=== PATIENT | female | born 1990 | race African-American/Black ===

== ENCOUNTER 2020-01-07 23:24 | Emergency (ER) | payer OTHER, SELFPAY ==
[2020-01-07 23:42] VITALS: BP 155/105; PULSE 115; RESP 22; TEMP 37.1; O2SAT 100
[2020-01-08 01:07] VITALS: BP 148/98; PULSE 107; RESP 18; TEMP 39.3; O2SAT 99
--- NOTE | 2020-01-08 02:04 | ED.DENTAL ---
HPI - Dental/Oral General Chief complaint: Upper Respiratory Infection Stated complaint: sore throat Time Seen by Provider: 01/08/20 01:46 Source: patient and RN notes reviewed Mode of arrival: ambulatory Limitations: no limitations History of Present Illness HPI Narrative: A 29 y/o female presents to the ED with a constant sore throat beginning yesterday morning. She states that she has kids that have been sick and that yesterday morning she began to have a sore throat, ear pain, subject fevers, and nasal congestion. She notes that she has taken both Tylenol and NyQuil for her symptoms but denies them alleviating her symptoms. She also denies any CP, cough, or SOB. MD Complaint: tooth pain (No just a sore throat) Onset (ago): hour(s) (yesterday morning) Duration: constant Relieving factors: nothing Associated symptoms: fever (subjective), ear pain and other (nasal congestion) Treatment prior to arrival: other (Tylenol and NyQuil) Related Data Allergies Allergy/AdvReac Type Severity Reaction Status Date / Time aspirin Allergy IRVING Valdivia Verified 12/14/19 03:32 ING Review of Systems Review of Systems: Narrative: CONSTITUTIONAL: Reports a subjective fever. ENT: Reports sore throat, nasal congestion and ear pain. CARDIOVASCULAR: Denies chest pain. RESPIRATORY: Denies cough or dyspnea. All systems reviewed & are unremarkable except as noted in HPI and below PMFSH Past Medical History Medical History (Updated 01/08/20 @ 03:03 by Gurpreet Weller) H/O: HTN (hypertension) Surgical History Surgical History (Updated 12/14/19 @ 04:23 by Ny Smalls MD) Previous section Social History Social History (Updated 12/14/19 @ 04:23 by Ny Smalls MD) Smoking status: Never smoker Alcohol intake: never Substance use: never Gender identity (if verbalized by the patient): Female Exam Narrative: Exam Narrative: GENERAL: Well-appearing, well-nourished, and in no acute distress. HEAD: Normocephalic, atraumatic. EYES: PERRLA and EOMI. ENT: Nares clear, no rhinorrhea or epistaxis. Mucous membranes moist. No tonsillar exudates but erythema , mild rt ear erythema, lt ear normal. NECK: Supple. CHEST: Clear to auscultation. No respiratory distress. HEART: Regular rate and rhythm. No murmur heard. Normal peripheral pulses. ABDOMEN: Soft, nontender, nondistended, normal active bowel sounds. EXTREMITIES: Normal range of motion. No edema. SKIN: Warm, dry, no rash. NEURO: No focal deficits. Alert and oriented X3. Course Course Emergency Course: Patient presented for evaluation of ear pain, sore throat. Patient found to have right otitis media. Influenza is negative. Patient was strep swab that is negative, but on exam her oropharynx is very erythematous and this will be consistent with strep pharyngitis. Patient without cough or shortness of breath. Will treat with antibiotics, also given Decadron for sore throat and discharged home in stable condition. Vital Signs Vital signs: Vital Signs Temperature 37.1 C 01/07/20 23:42 Pulse Rate 115 H 01/07/20 23:42 Respiratory Rate 22 H 01/07/20 23:42 Blood Pressure 155/105 H 01/07/20 23:42 Pulse Oximetry 100 01/07/20 23:42 Temperature 37.0 C 01/08/20 02:30 Pulse Rate 81 01/08/20 02:30 Respiratory Rate 16 01/08/20 02:30 Blood Pressure 111/86 01/08/20 02:30 Pulse Oximetry 100 01/08/20 02:30 MDM - Dental/Oral Lab Data Labs: Influenza A Screen Negative Reference Range: Negative Influenza B Screen Negative Reference Range: Negative Strep Screen Presumptive Negative *(Reference Range: Negative)* Discharge Plan Discharge Clinical Impression: Strep pharyngitis Otitis media Qualifiers: Otitis media type: serous Chronicity: acute Laterality: right Recurrence: non-recurrent Qualified Code(s): H65.01 - Acute serous otitis media, right ear Patient Dispo
[2020-01-08 02:30] VITALS: BP 111/86; PULSE 81; RESP 16; TEMP 37; O2SAT 100
[2020-01-08] MEDS: ACETAMINOPHEN 500 MG TABLET 1000 MG PO (02:30)
== END 2020-01-08 02:31 | disposition home or self-care (01) ==
PROVIDERS: Emergency Provider Emergency Medicine
DX: J02.0 Streptococcal pharyngitis (principal); H65.01 Acute serous otitis media, right ear
CPT/HCPCS: 87081; 87804; 87880; 99283; A9270; J1100

== ENCOUNTER 2020-09-06 15:58 | Emergency (ER) | payer OTHER, SELFPAY ==
--- NOTE | ~2020-09-06 | CT_ITS ---
EXAMINATION: CTA chest PE protocol DATE: 09/06/2020 20:36 INDICATION: Chest pain, elevated d-dimer, COVID 19 TECHNIQUE: Computed tomography angiography (CTA) of the chest was performed with 100 mL Omnipaque-350 intravenous contrast timed to evaluate the pulmonary arteries. Coronal maximum intensity projection 3D-reconstructions were created by the technologist. The dose-length product (DLP) was 1892.12 mGy-cm . Automated exposure control and iterative reconstruction technique were employed. COMPARISON: None. FINDINGS: There is moderate opacification of the pulmonary arteries. No pulmonary embolism is identif ied. There are patchy bilateral groundglass opacities throughout the lungs, right greater than left. No pleural effusion or pneumothorax is identified. The heart size is normal. Bilateral hilar lymphade nopathy is likely reactive. The visualized osseous structures are normal. IMPRESSION: 1. Patchy bilateral groundglass opacities in a distribution consistent with COVID 19 pneumonia. 2. Bilateral hilar lymphadenopathy, likely reactive. Reviewed, dictated and finalized at location A. IMPRESSION: 1. Patchy bilateral groundglass opacities in a distribution consistent with COV ID 19 pneumonia. 2. Bilateral hilar lymphadenopathy, likely reactive.
--- NOTE | ~2020-09-06 | XR_ITS ---
EXAMINATION: XR chest 1V portable INDICATION: Cough, COVID 19 positive TECHNIQUE: Portable AP chest at 1814 hours COMPARISON: None available FINDINGS: There are airspace opacities of the lung bases, right greater than left. No pleural effusio n or pneumothorax is identified. The cardiomediastinal silhouette is normal. IMPRESSION: 1. Bibasilar airspace opacities, right greater than left, likely COVID pneumonia given clinical histo ry. Reviewed, dictated and finalized at location A. IMPRESSION: 1. Bibasilar airspace opacities, right greater than left, likely COVID pneumoni a given clinical history.
[2020-09-06 16:20] VITALS: BP 140/94; PULSE 117; RESP 18; TEMP 38.2; O2SAT 98
[2020-09-06 16:39] LABS: Basophils Percent Auto 0.1 % (0.2-1.2); Eosinophils Percent Auto 0.1 % (0-4.4); Hematocrit 38.8 % (37.0-47.0); Hemoglobin 12.3 g/dL (12.0-15.0); Immature Granulocyte Absolute 0.02 K/mm3 (0.00-0.031); Immature Granulocyte Percent A 0.3 % (0-0.5); Lymphocytes Percent Auto 18.8 % (18.3-44.2); Mean Corpuscular HGB Conc 31.7 g/dl (32-36); Mean Corpuscular Hemoglobin 25.9 pg (26-34); Mean Corpuscular Volume 81.9 fl (80-100); Mean Platelet Volume 12.2 fl (7.4-10.4); Monocytes Absolute Auto 0.3 K/mm3 (0.1-0.6); Neutrophils Absolute Auto 6.1 K/mm3 (1.3-6.7); Neutrophils Percent Auto 76.7 % (45.5-73.1); Platelet Count Result 171 k/mm3 (150-375); Red Blood Count 4.74 M/mm3 (4.2-5.4); Red Cell Distribution Width 15.9 % (11.5-14.5)
[2020-09-06 16:52] LABS: Alanine Aminotransferase 19 U/L (4-35); Albumin Level 4.2 g/dL (3.5-5.1); Alkaline Phosphatase 77 U/L (38-126); Anion Gap 11 mmol/L (8-16); Aspartate Amino Transferase 35 U/L (14-36); Bilirubin,Total 0.5 mg/dL (0.2-1.3); Blood Urea Nitrogen 6 mg/dL (7-17); Calcium 8.5 mg/dL (8.4-10.2); Carbon Dioxide 27 mmol/L (22-30); Chloride 101 mmol/L (98-107); Estimated CRCL calculation 117 ml/min; Estimated Glomerular Filt Rate > 60; Glucose 107 mg/dL (65-105); Lipase 37 U/L (23-300); Potassium 3.6 mmol/L (3.4-5.0); Sodium 139 mmol/L (137-145)
--- NOTE | 2020-09-06 17:26 | ED.NAVMDI ---
HPI - Nausea/Vomiting/Diarrhea General Chief complaint: Nausea/Vomiting/Diarrhea Stated complaint: COVID symptoms Time Seen by Provider: 09/06/20 17:26 Source: patient Mode of arrival: ambulatory Limitations: no limitations History of Present Illness HPI Narrative: Patient is a 29-year-old female, recently diagnosed with COVID 1 week ago who presents for evaluation of nausea, vomiting, myalgias, chest pain. Patient states she has felt increasingly worse with cough, fever, myalgias and recurrent nausea and vomiting over the past several days. Patient states that she was starting to feel so unwell that she decided to seek care in the emergency department. She reports cough and shortness of breath with exertion. She reports mild chest pain as well as diffuse myalgias. She reports nausea and vomiting as well as diarrhea. 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 Related Data Allergies Allergy/AdvReac Type Severity Reaction Status Date / Time aspirin Allergy Intermediate IRVING OCONNOR Verified 09/06/20 16:25 ING Review of Systems Review of Systems: Narrative: CONSTITUTIONAL: Reports fever and chills EYES: Denies visual changes, redness, or discharge. ENT: Denies rhinorrhea, congestion, sore throat, or otalgia. CARDIOVASCULAR: Reports chest pain without palpitations RESPIRATORY: Reports cough and shortness of breath GASTROINTESTINAL: Denies abdominal pain, reports nausea, vomiting and diarrhea GENITOURINARY: Denies dysuria or hematuria. SKIN: Denies rash or itching. MUSCULOSKELETAL: Reports myalgias NEUROLOGIC: Reports headache and weakness PMFSH Past Medical History Medical History (Updated 09/06/20 @ 21:31 by Ny Smalls MD) H/O: HTN (hypertension) Obesity Surgical History Surgical History (Updated 12/14/19 @ 04:23 by Ny Smalls MD) Previous section Social History Social History Smoking status: Never smoker Alcohol intake: never Substance use: never Gender identity (if verbalized by the patient): Female Exam Narrative: Exam Narrative: GENERAL: Awake, alert, conversant HEAD: Normocephalic, atraumatic. EYES: PERRLA and EOMI. ENT: Nares clear, no rhinorrhea or epistaxis. Mucous membranes moist. NECK: Supple. CHEST: No respiratory distress, breathing even and non labored HEART: Tachycardic rate, sinus rhythm ABDOMEN: Obese, non distended, non tender EXTREMITIES: Normal range of motion. No edema. SKIN: Warm, dry, no rash. NEURO:No focal deficits. Alert and oriented x3 Course Vital Signs Vital signs: Vital Signs Temperature 38.2 C H 09/06/20 16:20 Pulse Rate 117 H 09/06/20 16:20 Respiratory Rate 18 09/06/20 16:20 Blood Pressure 140/94 H 09/06/20 16:20 Pulse Oximetry 98 09/06/20 16:20 Temperature 37.9 C H 09/06/20 19:45 Pulse Rate 94 09/06/20 19:45 Respiratory Rate 18 09/06/20 19:45 Blood Pressure 137/93 H 09/06/20 19:45 Pulse Oximetry 98 09/06/20 19:45 MDM - Nausea/Vomiting/Diarrhea MDM Narrative Medical decision making narrative: Patient with diagnosis of COVID-19. At the time of assessment, she is tachycardic and febrile. No hypotension. Patient is not hypoxic. No increased work of breathing. Laboratory results are reassuring. No leukocytosis or severe lymphopenia. No thrombocytopenia. No severe electrolyte derangement or acute kidney injury. CTA without evidence of PE, she does have infiltrates consistent with COVID diagnosis. This is viral and does not warrant antibiotics. Patient does not have hypoxemia, no respiratory distress and this does not warrant any steroids per current guidelines. No lactic acidosis. No sign of severe sepsis or septic shock. No UTI. No elevation in troponin. Patient was reassessed, improved after fluids and Tylenol. Patient advised to get pulse oximeter to help her monitor her pulse ox at home. At this point, patient haris
--- NOTE | 2020-09-06 17:42 | ECG_ITS ---
Measurements Intervals [place] Rate: 110 P: 48 MS: 127 QRS: 16 QRSD: 86 T: 10 QT: 314 QTc: 425 Interpretive Statements SINUS TACHYCARDIA POSSIBLE RIGHT ATRIAL ENLARGEMENT VOLTAGE CRITERIA FOR LVH BORDERLINE T WAVE ABNORMALITY- ANT/INF LEADS BASELINE ARTIFACT- V1 ABNORMAL ECG Electronically Signed On 09-07-2020 6:45:32 CDT by Bear Meehan D.O.
[2020-09-06] MEDS: ONDANSETRON INJ 4 MG/2 ML VIAL IV PUSH (18:18)
[2020-09-06] MEDS: SODIUM CHLORIDE 0.9% IV 1,000 ML 999 ML IV CONT ×2 (18:18)
[2020-09-06] MEDS: MORPHINE SULFATE (*CRX) 4 MG/ML INJ IV PUSH (18:18)
[2020-09-06 18:20] VITALS: BP 110/78; PULSE 110; RESP 26; O2SAT 98
[2020-09-06 18:47] LABS: Add Urine Microscopic? YES; Appearance Urine Cloudy (Clear); Bacteria Urine Trace /hpf; Bilirubin Urine Negative (Negative); Blood Urine 3+ (Negative); Color Urine Amber (Yellow); Glucose Urine UA Negative (Negative); Ketones Urine Negative (Negative); Leukocyte Esterase Ur Negative LEU/UL (Negative); Mucus Urine Few /lpf; Nitrate Urine Negative (Negative); Protein Urine 2+ mg/dL (Negative); Specific Grav Ur 1.026 (1.001-1.035); Squamous Epithelial Cell Urine Many /hpf (Few)
[2020-09-06 18:53] LABS: INR 1.1; Prothrombin Time 14.1 Seconds (11.1-14.7)
[2020-09-06 18:54] LABS: Partial Thromboplastin Time 29.7 SECONDS (22.3-36.8)
[2020-09-06 18:56] LABS: D Dimer 0.51 ug/mL (<0.48)
[2020-09-06 19:09] LABS: Troponin I < 0.012 ng/mL (0.000-0.034)
[2020-09-06 19:45] VITALS: BP 137/93; PULSE 94; RESP 18; TEMP 37.9; O2SAT 98
[2020-09-06 21:48] VITALS: BP 126/82; PULSE 90; RESP 25; O2SAT 97
== END 2020-09-06 21:50 | disposition home or self-care (01) ==
PROVIDERS: Emergency Provider Emergency Medicine
DX: U07.1 COVID-19 (principal); I10 Essential (primary) hypertension; E66.9 Obesity, unspecified; Z68.43 Body mass index [BMI] 50.0-59.9, adult; R00.0 Tachycardia, unspecified; R94.31 Abnormal electrocardiogram [ECG] [EKG]
CPT/HCPCS: 36415; 71045; 71275; 80053; 81001; 81025; 83605; 83690; 84484; 85025; 85380; 85610; 85730; 87040; 93005; 96361; 96374; 96375; 99284; J0131; J2270; J2405; J7030; Q9967

== ENCOUNTER 2020-11-08 21:18 | Emergency (ER) | payer OTHER, SELFPAY ==
[2020-11-08 21:23] VITALS: BP 151/112; PULSE 88; RESP 20; TEMP 35.9; O2SAT 100
--- NOTE | 2020-11-08 21:27 | ED_ITS ---
HPI - Nausea/Vomiting/Diarrhea General Chief complaint: Nausea/Vomiting/Diarrhea Stated complaint: vomiting, sinus congestion Time Seen by Provider: 11/08/20 21:26 Related Data Allergies Allergy/AdvReac Type Severity Reaction Status Date / Time aspirin Allergy IRVING Valdivia Verified 11/08/20 21:25 ING [facility] Past Medical History Medical History (Updated 09/06/20 @ 21:31 by Ny Smalls MD) H/O: HTN (hypertension) Obesity Surgical History Surgical History (Updated 12/14/19 @ 04:23 by Ny Smalls MD) Previous section Social History Social History Smoking status: Never smoker Alcohol intake: never Substance use: never Gender identity (if verbalized by the patient): Female Course Vital Signs Vital signs: Vital Signs Temperature 35.9 C L 11/08/20 21:23 Pulse Rate 88 11/08/20 21:23 Respiratory Rate 20 11/08/20 21:23 Blood Pressure 151/112 H 11/08/20 21:23 Pulse Oximetry 100 11/08/20 21:23 Temperature 35.9 C L 11/08/20 21:23 Pulse Rate 88 11/08/20 21:23 Respiratory Rate 20 11/08/20 21:23 Blood Pressure 151/112 H 11/08/20 21:23 Pulse Oximetry 100 11/08/20 21:23 Discharge Plan Discharge Prescriptions: No Action oxycodone-acetaminophen 5-325 mg tablet 1 tablet PO Q6H PRN (Reason: pain) Qty: 14 RF: 0 ondansetron HCl [Zofran] 4 mg tablet 4 mg PO Q8H Qty: 14 RF: 0 albuterol sulfate [Ventolin HFA] 90 mcg/actuation HFA aerosol inhaler 1 inhalation INHALATION QID 10 Days Qty: 6.7 RF: 0
--- NOTE | 2020-11-08 21:28 | ED.GENADULT ---
HPI - General Adult General Chief complaint: Nausea/Vomiting/Diarrhea <Leigh Ann Elliott PA-C - Last Filed: 11/09/20 00:24> Stated complaint: vomiting, sinus congestion <Leigh Ann Elliott PA-C - Last Filed: 11/09/20 00:24> Time Seen by Provider: 11/08/20 21:26 <Leigh Ann Elliott PA-C - Last Filed: 11/09/20 00:24> Source: patient <Leigh Ann Elliott PA-C - Last Filed: 11/09/20 00:24> Mode of arrival: ambulatory <LEELEE Rosa Last Filed: 11/09/20 00:24> Limitations: no limitations <Leigh Ann Elliott PA-C - Last Filed: 11/09/20 00:24> History of Present Illness HPI narrative: Patient is here for treatment of 3 to 4 days of vomiting. Frequently preceded by coughing. She states she can keep nothing down. She went to her doctor today and was prescribed an antibiotic for sinusitis, some blood pressure medicine and something for pain. She has not taken his medications yet. She is complaining of sinus congestion and pressure and ear pain as well. She denies any fever, chest pain, shortness of breath or wheezing. <Leigh Ann Elliott PA-C - Last Filed: 11/09/20 00:24> Onset (ago): day(s) <Leigh Ann Elliott PA-C - Last Filed: 11/09/20 00:24> Severity: mild <LEELEE Rosa Last Filed: 11/09/20 00:24> Relieving factors: none <LEELEE Rosa Last Filed: 11/09/20 00:24> Exacerbating factors: none <LEELEE Rosa Last Filed: 11/09/20 00:24> Associated symptoms: denies other symptoms <LEELEE Rosa Last Filed: 11/09/20 00:24> Treatments prior to arrival: none <LEELEE Rosa Last Filed: 11/09/20 00:24> Related Data Home medications: Home Medications Medication Instructions Recorded Confirmed azithromycin 11/08/20 11/08/20 metoprolol succinate PO 11/08/20 montelukast mg 11/08/20 <Leigh Ann Elliott PA-C - Last Filed: 11/09/20 00:24> Allergies/adverse reactions: Allergies Allergy/AdvReac Type Severity Reaction Status Date / Time aspirin Allergy Intermediate ELVINIRVING Verified 11/08/20 21:25 ING <Leigh Ann Elliott PA-C - Last Filed: 11/09/20 00:24> Review of Systems Review of Systems: All systems reviewed & are unremarkable except as noted in HPI and below <Leigh Ann Elliott PA-C - Last Filed: 11/09/20 00:24> [facility] Past Medical History Medical History: Medical History H/O: HTN (hypertension) Obesity <Leigh Ann Elliott PA-C - Last Filed: 11/09/20 00:24> Surgical History Surgical History: Surgical History Previous section <Leigh Ann Elliott PA-C - Last Filed: 11/09/20 00:24> Social History Social History: Social History (Updated 11/08/20 @ 21:49 by Leigh Ann Elliott PA-C) Smoking status: Never smoker Alcohol intake: never Substance use: never Living arrangements: with family Occupation/Education: occupation 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 Gender identity (if verbalized by the patient): Female <Leigh Ann Elliott PA-C - Last Filed: 11/09/20 00:24> Exam Const: General: no acute distress and alert <Leigh Ann Elliott PA-C - Last Filed: 11/09/20 00:24> Nutritional Appearance: obese <Leigh Ann Elliott PA-C - Last Filed: 11/09/20 00:24> Orientation/consciousness: patient oriented x3 <LEELEE Rosa Last Filed: 11/09/20 00:24> HENMT: Ears: TM abnormal wth effusion (bilat) <Leigh Ann Elliott PA-C - Last Filed: 11/09/20 00:24> General nose exam: Normal septum present, No nasal discharge present and Abnormal mucous membranes and turbinates present (swollen) <LEELEE Rosa Last Filed: 11/09/20 00:24> Face and sinus: sinus tenderness frontal and maxillary <Leigh Ann Elliott PA-C - Last Filed: 11/09/20 00:24> Mouth: Yes Normal oral and palatal mucosa present <Leigh Ann Elliott
[2020-11-08 22:12] LABS: Hematocrit 36.6 % (37.0-47.0); Hemoglobin 11.6 g/dL (12.0-15.0); Mean Corpuscular HGB Conc 31.7 g/dl (32-36); Mean Corpuscular Hemoglobin 27.2 pg (26-34); Mean Corpuscular Volume 85.9 fl (80-100); Mean Platelet Volume 11.5 fl (7.4-10.4); Platelet Count Result 239 k/mm3 (150-375); Red Blood Count 4.26 M/mm3 (4.2-5.4); Red Cell Distribution Width 16.2 % (11.5-14.5); White Blood Count 10.3 K/mm3 (4.5-10.0)
[2020-11-08] MEDS: SODIUM CHLORIDE 0.9% IV 1,000 ML 999 ML IV CONT (22:14)
[2020-11-08 22:19] LABS: Add Urine Microscopic? YES; Appearance Urine Clear (Clear); Bacteria Urine Trace /hpf; Bilirubin Urine Negative (Negative); Blood Urine Negative (Negative); Color Urine Yellow (Yellow); Glucose Urine UA Negative (Negative); Ketones Urine Negative (Negative); Leukocyte Esterase Ur Negative LEU/UL (Negative); Mucus Urine Rare /lpf; Nitrate Urine Negative (Negative); Protein Urine Negative (Negative); RBC Urine 0-2 /hpf (0-2); Specific Grav Ur 1.021 (1.001-1.035); Squamous Epithelial Cell Urine Many /hpf (Few); Urobilinogen Urine Negative mg/dL (<2.0); WBC Urine 0-3 /hpf
[2020-11-08 22:23] LABS: Anion Gap 8 mmol/L (8-16); Blood Urea Nitrogen 13 mg/dL (7-17); Carbon Dioxide 27 mmol/L (22-30); Chloride 103 mmol/L (98-107); Estimated CRCL calculation 135 ml/min; Estimated Glomerular Filt Rate > 60; Glucose 94 mg/dL (65-105); Potassium 4.1 mmol/L (3.4-5.0); Sodium 138 mmol/L (137-145)
[2020-11-08 22:27] LABS: Eosinophils Percent Manual 3 % (0-4); Lymphocytes Absolute Manual 5.56 K/mm3 (1.1-4.5); Monocytes Absolute Manual 0.51 K/mm3 (0.1-0.90); Monocytes Percent Manual 5 % (3-9); Neutrophils Percent Manual 38 % (46-73); Platelet Estimate Adequate (Adequate); Total Cells Counted 100
[2020-11-08 22:28] LABS: Anisocytosis 2+ (NORMAL)
[2020-11-08 22:29] LABS: Hypochromasia 1+ (NORMAL)
[2020-11-08] MEDS: ONDANSETRON INJ 4 MG/2 ML VIAL IV PUSH (22:40)
[2020-11-09 00:39] VITALS: BP 146/93; PULSE 85; RESP 18; O2SAT 100
== END 2020-11-09 00:46 | disposition home or self-care (01) ==
PROVIDERS: Physician Assistant; Emergency Provider Emergency Medicine
DX: R11.10 Vomiting, unspecified (principal); J01.01 Acute recurrent maxillary sinusitis; R05 Cough; I10 Essential (primary) hypertension; E66.9 Obesity, unspecified; Z68.43 Body mass index [BMI] 50.0-59.9, adult
CPT/HCPCS: 36415; 80048; 81001; 85025; 96361; 96374; 99284; J2405; J7030

== ENCOUNTER 2021-12-27 10:44 | Inpatient (IN) | payer OTHER, SELFPAY ==
--- NOTE | ~2021-12-27 | MR_ITS ---
EXAMINATION: MR MRCP wo/w con/w 3D wo ind DATE: 12/28/2021 11:21 INDICATION: Cholelithiasis. Acute pancreatitis. TECHNIQUE: Magnetic resonance imaging (MRI) of the abdomen was performed without and with 20 mL Multi [place] intravenous contrast. Sequences included coronal T2-weighted FS FSE, coronal T2-weighted FSE, a xial T1-weighted LAVA, coronal FS FIESTA, axial dual-echo T1-weighted SPGR, coronal lava-FLEX, sagitt al T2-weighted FSE, axial T2-weighted FSE, and axial DWI. Thick-slab T2-weighted FSE images were obta ined for magnetic resonance cholangiopancreatography (MRCP). Maximum intensity projection 3-D reconst ructions of the volumetric data were created by the technologist. Postcontrast sequences included cor onal LAVA-flex and time course of axial T1-weighted LAVA. COMPARISON: CT abdomen and pelvis 12/27/2021, ultrasound 12/27/2021 FINDINGS: ABDOMEN MRI: The liver is normal. The gallbladder is normal in size and filled with gallstones. There is fat stranding around the pancreas, consistent with acute interstitial pancreatitis. The pancreas enhances throughout. The spleen, adrenal glands, and kidneys are normal. There are no dilated loops o f bowel. There are no pathologically enlarged lymph nodes. There is physiologic fluid in the pelvis. ABDOMEN MRCP: The common duct is normal and measures 3 mm. No choledocholithiasis. IMPRESSION: 1. Acute interstitial pancreatitis. 2. Normal common duct. No choledocholithiasis. 3. Cholelithiasis. Reviewed, dictated and finalized at location A. DOOR BUILDER
--- NOTE | ~2021-12-27 | US_ITS ---
EXAMINATION: US abdomen limited EXAM DATE: 12/27/2021 14:22 INDICATION: Cholelithiasis. Pancreatitis. TECHNIQUE: Multiple grayscale and Doppler images of the abdomen right upper quadrant were obtained (b y a technologist who performed the scan) and subsequently reviewed. Correlation is made to CT abdomen pelvis same date. FINDINGS: The pancreatic head and body are normal in appearance. The pancreatic tail is not visualized. Please note that uncomplicated pancreatitis typically does not have ultrasound findings. The liver has norm al echogenicity and contour. There are no focal liver lesions identified. There is no evidence of intrahepatic biliary duct dilation. Portal venous flow was seen in the hepatopedal, normal direction and has normal Doppler waveform. No right-sided hydronephrosis. Common bile duct measures 5 mm, which is normal. Gallbladder has wall echo shadow appearance, stone filled gallbladder. There is mild gallbladder wall thickening at 4-5 mm. This is nonspecific in the setting of acute pancreatitis but reportedly technologist did find right upper quadrant tenderness. N o pericholecystic fluid. IMPRESSION: Cholelithiasis, mild gallbladder wall thickening and right upper quadrant tenderness. Fin dings could be reactive from acute pancreatitis but acute cholecystitis not excludable. Reviewed, dictated and finalized at location A. OPERATOR IMPRESSION: Cholelithiasis, mild gallbladder wall thickening and right upper qu adrant tenderness. Findings could be reactive from acute pancreatitis but acute cholecystitis not excludable.
--- NOTE | ~2021-12-27 | XR_ITS ---
EXAMINATION: XR chest 2V DATE: 12/27/2021 11:32 INDICATION: Central chest pain. TECHNIQUE: Frontal and lateral views of the chest were obtained. COMPARISON: Chest single view 09/06/2020, chest CT 09/06/2020 FINDINGS: The chest demonstrates clear lungs without pneumonia, pleural effusion, or pneumothorax. Th e heart size is normal. IMPRESSION: 1. No acute cardiopulmonary disease. Reviewed, dictated and finalized at location A. AGING DESIGN ENGINEER
--- NOTE | ~2021-12-27 | CT_ITS ---
EXAMINATION: CT abdomen pelvis w con DATE: 12/27/2021 13:01 INDICATION: Chest pain. Elevated lipase. TECHNIQUE: Computed tomography (CT) of the abdomen and pelvis was performed with 100 cc Omnipaque 350 intravenous contrast. The dose-length product was 1462.20 mGy-cm. Automated exposure control and ite rative reconstruction technique were employed. COMPARISON: None. FINDINGS: Lung bases are unremarkable. Heart size normal. No significant pleural or pericardial effus ion. Lung bases are unremarkable. Heart size normal. No significant pleural or pericardial effusion. No significant vascular abnormality. No lymphadenopathy. Nonobstructive bowel gas pattern. Fatty infiltration of the liver. The spleen, adrenal glands and kidneys are unremarkable. Gallbladder contains stones. There is mild thickening of the pancreatic head and neck with subtle peripancreatic fatty infiltration, consistent with acute pancreatitis. No evidence for pseudocyst formation. Small fat-containing umbilical hernia. No free air or free fluid. No acute osseous abnormality. IMPRESSION: 1. Acute mild pancreatitis. 2: Cholelithiasis. 3: Fatty infiltration of the liver. Reviewed, dictated and finalized at location B. ICAL ANALYST
--- NOTE | 2021-12-27 10:47 | ECG_ITS ---
Measurements Intervals [place] Rate: 96 P: 21 WI: 138 QRS: 31 QRSD: 90 T: 23 QT: 322 QTc: 408 Interpretive Statements SINUS RHYTHM MINIMAL Q WAVES- HIGH LATERAL LEADS BASELINE ARTIFACT- I, II, AVR BORDERLINE ECG Electronically Signed On 12-27-2021 10:58:55 [employer] by Bear Meehan D.O.
[2021-12-27 10:58] VITALS: BP 134/75; PULSE 94; RESP 15; TEMP 36.7; O2SAT 100
[2021-12-27 11:11] LABS: Basophils Percent Auto 0.2 % (0.2-1.2); Eosinophils Absolute Auto 0.1 K/mm3 (0-0.3); Eosinophils Percent Auto 0.7 % (0-4.4); Hematocrit 31.2 % (37.0-47.0); Hemoglobin 9.4 g/dL (12.0-15.0); Immature Granulocyte Absolute 0.04 K/mm3 (0.00-0.031); Immature Granulocyte Percent A 0.4 % (0-0.5); Lymphocytes Absolute Auto 1.65 K/mm3 (0.9-3.2); Lymphocytes Percent Auto 15.7 % (18.3-44.2); Mean Corpuscular HGB Conc 30.1 g/dl (32-36); Mean Corpuscular Hemoglobin 24.1 pg (26-34); Mean Platelet Volume 11.1 fl (7.4-10.4); Monocytes Absolute Auto 0.6 K/mm3 (0.1-0.6); Monocytes Percent Auto 5.8 % (2.6-8.5); Neutrophils Absolute Auto 8.2 K/mm3 (1.3-6.7); Neutrophils Percent Auto 77.2 % (45.5-73.1); Platelet Count Result 323 k/mm3 (150-375); Red Cell Distribution Width 15.6 % (11.5-14.5); White Blood Count 10.5 K/mm3 (4.5-10.0)
[2021-12-27 11:25] LABS: Partial Thromboplastin Time 25.8 SECONDS (22.3-36.8); Prothrombin Time 13.1 Seconds (11.1-14.7)
[2021-12-27 11:34] LABS: Troponin I < 0.012 ng/mL (0.000-0.034)
[2021-12-27 11:54] LABS: Alanine Aminotransferase 169 U/L (4-35); Albumin Level 4.3 g/dL (3.5-5.1); Alkaline Phosphatase 130 U/L (38-126); Anion Gap 3 mmol/L (8-16); Aspartate Amino Transferase 463 U/L (14-36); Bilirubin,Total 0.9 mg/dL (0.2-1.3); Blood Urea Nitrogen 11 mg/dL (7-17); Calcium 9.2 mg/dL (8.4-10.2); Carbon Dioxide 27 mmol/L (22-30); Chloride 107 mmol/L (98-107); Estimated CRCL calculation 132 ml/min; Estimated Glomerular Filt Rate > 60; Glucose 106 mg/dL (65-110); Sodium 137 mmol/L (137-145)
[2021-12-27 12:30] VITALS: BP 143/78; PULSE 85; RESP 16; O2SAT 100
--- NOTE | 2021-12-27 12:31 | ED.CHESTPAIN ---
HPI - Chest Pain General Chief Complaint: Abdominal Pain Stated Complaint: CP Time Seen by Provider: 12/27/21 12:13 Source: patient Mode of arrival: ambulatory Limitations: no limitations History of Present Illness HPI narrative: This is a 31 year old female that presents to the ER for chest pain since this morning. Reports a sharp pain in her chest and her back. Reports the pain has been consistently worsening which prompted her to be seen. She was seen at another hospital a couple of weeks ago and told she had gallstones. Was scheduled to follow up with a surgeon today, but her pain was too bad so she decided to be seen in the ED. Reports some nausea and vomiting. Denies fever, shortness of breath, or diarrhea. Related Data Home Medications Medication Instructions Recorded Confirmed montelukast mg 11/08/20 albuterol sulfate INHALATION 12/27/21 amlodipine-benazepril cap 12/27/21 cephalexin 12/27/21 cetirizine mg 12/27/21 metformin mg 12/27/21 norethindrone (contraceptive) mg 12/27/21 [Norlyda] tizanidine mg 12/27/21 Allergies Allergy/AdvReac Type Severity Reaction Status Date / Time aspirin Allergy Intermediate IRVING OCONNOR Verified 12/27/21 13:09 ING Review of Systems Review of Systems: CONSTITUTIONAL: Denies fever CARDIOVASCULAR: Reports chest pain. Denies edema. RESPIRATORY: Denies dyspnea. GASTROINTESTINAL: Reports abdominal pain, nausea, vomiting. Denies diarrhea. 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 HEAD: Normocephalic, atraumatic. EYES: EOMI. CHEST: Clear to auscultation. No respiratory distress. No wheezes rales or rhonchi HEART: Regular rate and rhythm. No murmur heard. Normal peripheral pulses. ABDOMEN: Soft, nondistended, normal active bowel sounds. Tender to palpation in epigastrium and right upper quadrant, without guarding. EXTREMITIES: Normal range of motion. No edema. SKIN: Warm, dry, no rash. NEURO: No focal deficits. Alert and oriented x3. PSYCH: Normal mood and affect Course Consultations Consultation #1: Spoke with Dr. Gaona about patient and work-up who will consult. Date: 12/27/21 Consultation #2: Spoke with Dr. Maloney about patient and work-up who would like MRCP ordered and will consult. Date: 12/27/21 Consultation #3: Spoke with hospitalist about patient and work-up who accepts admission Date: 12/27/21 Vital Signs Vital signs: Vital Signs Temperature 98.0 F 12/27/21 10:58 Pulse Rate 94 12/27/21 10:58 Respiratory Rate 15 12/27/21 10:58 Blood Pressure 134/75 12/27/21 10:58 Pulse Oximetry 100 12/27/21 10:58 Temperature 98.0 F 12/27/21 10:58 Pulse Rate 85 12/27/21 12:30 Respiratory Rate 16 12/27/21 12:30 Blood Pressure 143/78 H 12/27/21 12:30 Pulse Oximetry 100 12/27/21 12:30 MDM - Chest Pain MDM Narrative Medical decision making narrative: Patient presents to the ER for chest pain and back pain. She is afebrile and nontoxic appearing. Her vitals are stable. CBC with mild leukocytosis to 10.5. Also shows normocytic anemia with hemoglobin of 9.4. Metabolic panel with transaminitis with AST of 463 and ALT of 169. Lipase is elevated to 28,385. Bedside test is negative. EKG without acute ST changes and baseline troponin is negative. C
[2021-12-27] MEDS: SODIUM CHLORIDE 0.9% IV 1,000 ML 999 ML IV CONT (13:02)
[2021-12-27] MEDS: ONDANSETRON INJ 4 MG/2 ML VIAL IV PUSH ×2 (13:03→15:32)
[2021-12-27] MEDS: MORPHINE SULFATE (*CRX) 4 MG/ML INJ IV PUSH (13:03)
[2021-12-27 14:30] VITALS: PULSE 81; RESP 13; O2SAT 99
--- NOTE | 2021-12-27 14:49 | PM.IMHP ---
H&P: HPI History of Present Illness Date/Time: 12/27/21 14:49 this is a 31-year-old female patient who recently was diagnosed with gallstones at an outside facility. The patient came to the emergency room here with complaints of chest discomfort since this morning. She said it was sharp it was in her chest is midsternal was in her back. Now she is complaining of diffuse abdominal pain the patient was scheduled to follow-up with the surgeon today but was in too much pain to follow-up with that surgeon and came to the emergency room instead. At the time she reported that she did not have any nausea vomiting. But now she is complaining of some slight nausea. Abdominal pelvis CT was read as acute mild pancreatitis. Cholelithiasis. Fatty infiltrated liver. Abdominal ultrasound was read as cholelithiasis mild gallbladder wall thickening and right upper quadrant tenderness findings could be reactive from acute pancreatitis but acute coli cystitis not excludable. White count was noted to be 10.5 and H&H is 9.4 and 31.2. Cardiac enzymes are negative x3. A sees 463 ALT 169 and alkaline phosphatase 130. Lipase is 28,385. Surgery has been consulted. Her H&H is 9.4 and 31.2. Blood pressure 151/98. The patient is being admitted for observation on 12/27/2019 tube. Chief Complaint: Abdominal pain Review of Systems Review of Systems: All systems reviewed & are unremarkable except as noted in HPI and below Constitutional: Constitutional: Reports as per HPI and Reports no additional constitutional complaints Eyes: Eyes: Reports as per HPI and Reports no additional eye complaints ENT: Reports system reviewed and no additional complaints, except as documented and Reports Normal hearing present Cardiovascular: Cardiovascular: Reports no additional cardiovascular complaints Respiratory: Respiratory: Reports no additional respiratory complaints and Reports no additional respiratory complaints Gastrointestinal: Gastrointestinal: Reports as per HPI and Reports no additional gastrointestinal complaints Musculoskeletal: Musculoskeletal: Reports no additional musculoskeletal complaints Integumentary/Breasts: Skin/Breast: Reports system reviewed and no additional complaints, except as docu and Reports as per HPI Neurologic: Reports system reviewed and no additional complaints, except as documented, Reports as per HPI and Reports Normal hearing present Psychiatric: Psychiatric: Reports no additional psychiatric complaints and Reports as per HPI Endocrine: Endocrine: Reports no additional endocrine complaints Hematologic/Lymphatic: Hematologic/Lymphatic: Reports no additional hematologic/lymphatic complaints Allergic/Immunologic: Allergic/Immunologic: Reports no additional allergic/immunologic complaints PMFSH Past Medical History Medical History (Updated 12/27/21 @ 18:19 by Supriya Pete NP) H/O: HTN (hypertension) History of PCOS Hypertension Obesity PCOS (polycystic ovarian syndrome) Surgical History Surgical History Previous section 3 c section Family History Family History Mother Hypertension Asthma Social History Social History (Updated 12/27/21 @ 18:10 by Supriya Pete NP) Social History: 4 pregnancies with 2 living children. She is single. 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 The patient denies any alcohol marijuana illicit drugs. The patient does not have a durable power bankruptcy attorney for healthcare. Code status full code Smoking status: Never smoker Alcohol intake: never Substance use: never Gender identity (if verbalized by the patient): Female Meds Home Medications and Allergies Home Medications Medication Instructions Recorded Confirmed Type montelukast mg 11/08/20 History albuterol sulfate INHALATION 12/27/21 History amlodipine-benazepri
[2021-12-27 14:50] VITALS: BP 151/98; PULSE 81; RESP 23; O2SAT 99
[2021-12-27 14:52] LABS: Troponin I < 0.012 ng/mL (0.000-0.034)
[2021-12-27] MEDS: HYDROmorphone HCL INJ (*CRX) 1 MG/ML SYR 0.5 MG IV PUSH (15:34)
[2021-12-27 17:31] LABS: Troponin I < 0.012 ng/mL (0.000-0.034)
[2021-12-27] MEDS: SODIUM CHLORIDE 0.9% IV 1,000 ML 125 ML IV CONT (17:51)
[2021-12-27 19:38] VITALS: BP 145/95; PULSE 73; RESP 20; O2SAT 99
--- NOTE | 2021-12-27 19:51 | PC.NURSE ---
1949-CALLED TO PHARMACY. REQUESTED 1999 [facility].
[2021-12-27 20:02] LABS: SARS-CoV-2 RNA PCR Negative
--- NOTE | 2021-12-27 20:25 | PC.NURSE ---
2024-CALLED TO PHARMACY AND AGAIN REQUESTED [facility] FOR 1999.
[2021-12-27 22:07] VITALS: BP 134/95; PULSE 72; RESP 20; O2SAT 97
[2021-12-27 22:34] LABS: Hematocrit 28.5 % (37.0-47.0); Hemoglobin 8.6 g/dL (12.0-15.0)
[2021-12-28 01:10] VITALS: BP 134/81; PULSE 71; RESP 18; TEMP 36; O2SAT 100
[2021-12-28 01:24] VITALS: BMI 41.2
[2021-12-28 01:26] VITALS: BP 98/72; PULSE 99; RESP 20; TEMP 36.5; O2SAT 100
[2021-12-28] MEDS: SODIUM CHLORIDE 0.9% IV 1,000 ML 125 ML IV CONT ×2 (03:05→20:25)
--- NOTE | 2021-12-28 03:23 | PC.NURSE ---
Pt refused SCD's
[2021-12-28 03:34] VITALS: BMI 41.2
[2021-12-28 05:16] VITALS: BP 134/65; PULSE 86; RESP 18; TEMP 36.4; O2SAT 98
[2021-12-28 07:36] LABS: Basophils Percent Auto 0.3 % (0.2-1.2); Eosinophils Absolute Auto 0.1 K/mm3 (0-0.3); Eosinophils Percent Auto 1.3 % (0-4.4); Hematocrit 27.5 % (37.0-47.0); Hemoglobin 8.3 g/dL (12.0-15.0); Immature Granulocyte Absolute 0.12 K/mm3 (0.00-0.031); Immature Granulocyte Percent A 1.2 % (0-0.5); Immature Reticulocyte Fraction 23.4 % (3.0-15.9); Lymphocytes Absolute Auto 2.53 K/mm3 (0.9-3.2); Lymphocytes Percent Auto 25.5 % (18.3-44.2); Mean Corpuscular HGB Conc 30.2 g/dl (32-36); Mean Corpuscular Hemoglobin 24.2 pg (26-34); Mean Corpuscular Volume 80.2 fl (80-100); Mean Platelet Volume 10.9 fl (7.4-10.4); Monocytes Absolute Auto 0.4 K/mm3 (0.1-0.6); Monocytes Percent Auto 4.1 % (2.6-8.5); Neutrophils Absolute Auto 6.7 K/mm3 (1.3-6.7); Neutrophils Percent Auto 67.6 % (45.5-73.1); Platelet Count Result 266 k/mm3 (150-375); Red Blood Count 3.43 M/mm3 (4.2-5.4); Red Cell Distribution Width 15.7 % (11.5-14.5); Reticulocyte Hemoglobin Conten 24.1 pg (28.2-35.7); Reticulocyte Percent 1.79 % (0.7-4.3); Reticulocytes Absolute 0.06 B/L (32.2-175.7); White Blood Count 9.9 K/mm3 (4.5-10.0)
[2021-12-28 07:44] LABS: Alanine Aminotransferase 176 U/L (4-35); Albumin Level 3.8 g/dL (3.5-5.1); Alkaline Phosphatase 146 U/L (38-126); Anion Gap 6 mmol/L (8-16); Aspartate Amino Transferase 186 U/L (14-36); Bilirubin,Total 0.5 mg/dL (0.2-1.3); Blood Urea Nitrogen 12 mg/dL (7-17); Calcium 8.6 mg/dL (8.4-10.2); Carbon Dioxide 24 mmol/L (22-30); Chloride 109 mmol/L (98-107); Estimated CRCL calculation 91 ml/min; Estimated Glomerular Filt Rate > 60; Glucose 87 mg/dL (65-110); Magnesium 2.1 mg/dL (1.6-2.3); Potassium 3.7 mmol/L (3.4-5.0); Sodium 139 mmol/L (137-145)
[2021-12-28 08:00] VITALS: PULSE 86; RESP 18; O2SAT 98
[2021-12-28 09:36] LABS: Iron 40 ug/dL (37-170)
[2021-12-28 09:46] LABS: Percent Iron Saturation 11 % (20-50)
[2021-12-28 10:12] LABS: Thyroid Stimulating Hormone Reflex 0.854 uIU/mL (0.465-4.68)
[2021-12-28 11:02] LABS: Folic Acid 6.9 ng/mL (2.76->20)
--- NOTE | 2021-12-28 11:40 | PM.IMPN ---
Progress Note: A&P Assessment and Plan (1) Gallstone pancreatitis: Code(s): K85.10 - Biliary acute pancreatitis without necrosis or infection Status: Acute Assessment and Plan: Pain improving MRCP negative for common duct stone Surgical evaluation pending (2) Hypertension: Qualifiers: Hypertension type: unspecified Qualified Code(s): I10 - Essential (primary) hypertension Code(s): I10 - Essential (primary) hypertension Status: Chronic Assessment and Plan: Blood pressures reviewed 12/28 and adequate Continue current management (3) UTI (urinary tract infection): Qualifiers: Urinary tract infection type: site unspecified Hematuria presence: without hematuria Qualified Code(s): N39.0 - Urinary tract infection, site not specified Code(s): N39.0 - Urinary tract infection, site not specified Status: Acute Assessment and Plan: Start ceftriaxone Await culture results Subjective Date/time seen: 12/28/21 11:40 Interval history: 12/28 VISIT. Right upper quadrant to flank discomfort. Currently NPO. Thirsty but no appetite. Denied chest pain or shortness of breath. Denied nausea vomiting. Denied abnormal bleeding. Does complain of dysuria and vaginal itching. History of UTIs maybe once per year. Feels similar to previous UTI. Review of Systems Review of Systems: All systems reviewed & are unremarkable except as noted in HPI and below Exam Narrative: HEENT: PERRL, sclerae nonicteric, pharyngeal mucosa pink and intact NECK: No JVD CHEST: Clear to auscultation. Normal effort. HEART: NL S1/S2, regular, no murmur ABDOMEN: BS+, soft, MILD RUQ TO EPIGASTRIC TENDERNESS, no mass, no bruits EXTREMITIES: No cyanosis, edema, or clubbing NEUROLOGIC: CN intact and symmetric to inspection. MUSCULOSKELETAL: Tone and strength symmetric. PSYCH: Alert. Oriented to person, place, and time. Objective Data Vital Signs Vital Signs: Vital Signs - 24 hr 12/27/21 12:30 12/27/21 14:30 12/27/21 14:50 Temperature Pulse Rate 85 81 81 Respiratory Rate 16 13 23 H Blood Pressure 143/78 H 151/98 H Pulse Oximetry 100 99 99 12/27/21 19:38 12/27/21 22:07 12/28/21 01:10 Temperature 96.8 F L Pulse Rate 73 72 71 Respiratory Rate 20 20 18 Blood Pressure 145/95 H 134/95 H 134/81 Pulse Oximetry 99 97 100 12/28/21 01:26 12/28/21 05:16 12/28/21 08:00 Temperature 97.7 F 97.6 F Pulse Rate 99 86 86 Respiratory Rate 20 18 18 Blood Pressure 98/72 L 134/65 Pulse Oximetry 100 98 98 Intake/Output Intake/Output: Intake & Output 12/25/21 12/26/21 12/27/21 12/28/21 23:59 23:59 23:59 23:59 Intake Total 1050 1050 Output Total 300 Balance 1050 750 Meds/Results Medications: Active Medications Generic Name Dose Route Start Last Admin Trade Name Freq PRN Reason Stop Dose Admin Albuterol 2 puff 12/28/21 00:42 Albuterol Sulfate (*Sp) Aerosol 1 Puff INHALATION Q6HRT PRN Shortness Of Breath Hydromorphone HCl 0.5 mg 12/27/21 14:55 12/27/21 15:34 Hydromorphone Hcl Inj (*Crx) 1 Mg/Ml Syr IV PUSH 0.5 mg Q3H PRN Administration pain 7-10 Sodium Chloride 1,000 mls @ 125 mls/hr 12/27/21 15:05 12/28/21 03:05 Normal Saline Iv IV CONT 125 mls/hr .Q8H KEVIN Administration Piperacillin/Tazobactam/Dextrose 3.375 gm in 50 mls @ 100 mls/hr 12/27/21 20:00 12/28/21 09:33 Zosyn 3.375 Gm/D5w 50ml Pm IVPB 100 mls/hr Q6H KEVIN Administration Ketorolac Tromethamine 15 mg 12/27/21 14:56 Ketorolac 15 Mg/Ml Vial (*Bkc) IV PUSH Q6H PRN Pain Rated 4-6 Ondansetron HCl 4 mg 12/27/21 14:53 12/27/21 15:32 Ondansetron Inj 4 Mg/2 Ml Vial IV PUSH 4 mg Q4H PRN Administration Nausea Radiology Results: ITS Impressions Chest X-Ray 12/27/21 11:34 IMPRESSION: 1. No acute cardiopulmonary disease. Abdomen/Pelvis CT 12/27/21 13:05 IMPRESSION: 1. Acute mild pancreatitis. 2: C
--- NOTE | 2021-12-28 12:40 | PM.PNGS ---
Subjective Subjective Date/Time Seen: 12/28/21 12:40 went to patient's room 2 different times but she was getting MRCP. Will dictate full consult tomorrow. Objective Data Vital Signs Vital Signs: Vital Signs - 24 hr 12/27/21 14:30 12/27/21 14:50 12/27/21 19:38 Temperature Pulse Rate 81 81 73 Respiratory Rate 13 23 H 20 Blood Pressure 151/98 H 145/95 H Pulse Oximetry 99 99 99 12/27/21 22:07 12/28/21 01:10 12/28/21 01:26 Temperature 36.0 C L 36.5 C Pulse Rate 72 71 99 Respiratory Rate 20 18 20 Blood Pressure 134/95 H 134/81 98/72 L Pulse Oximetry 97 100 100 12/28/21 05:16 12/28/21 08:00 Temperature 36.4 C Pulse Rate 86 86 Respiratory Rate 18 18 Blood Pressure 134/65 Pulse Oximetry 98 98 Intake/Output Intake/Output: Intake & Output 12/25/21 12/26/21 12/27/21 12/28/21 23:59 23:59 23:59 23:59 Intake Total 1050 1050 Output Total 300 Balance 1050 750 Meds/Results Medications: Active Medications Generic Name Dose Route Start Last Admin Trade Name Freq PRN Reason Stop Dose Admin Albuterol 2 puff 12/28/21 00:42 Albuterol Sulfate (*Sp) Aerosol 1 Puff INHALATION Q6HRT PRN Shortness Of Breath Hydromorphone HCl 0.5 mg 12/27/21 14:55 12/27/21 15:34 Hydromorphone Hcl Inj (*Crx) 1 Mg/Ml Syr IV PUSH 0.5 mg Q3H PRN Administration pain 7-10 Sodium Chloride 1,000 mls @ 125 mls/hr 12/27/21 15:05 12/28/21 03:05 Normal Saline Iv IV CONT 125 mls/hr .Q8H KEVIN Administration Piperacillin/Tazobactam/Dextrose 3.375 gm in 50 mls @ 100 mls/hr 12/27/21 20:00 12/28/21 09:33 Zosyn 3.375 Gm/D5w 50ml Pm IVPB 100 mls/hr Q6H KEVIN Administration Ketorolac Tromethamine 15 mg 12/27/21 14:56 Ketorolac 15 Mg/Ml Vial (*Bkc) IV PUSH Q6H PRN Pain Rated 4-6 Miconazole Nitrate 1 appful 12/28/21 21:00 Miconazole Nitrate 2% Vaginal Cream 45 Gm Tube VAGINAL HS KEVIN Ondansetron HCl 4 mg 12/27/21 14:53 12/27/21 15:32 Ondansetron Inj 4 Mg/2 Ml Vial IV PUSH 4 mg Q4H PRN Administration Nausea Radiology Results: ITS Impressions Chest X-Ray 12/27/21 11:34 IMPRESSION: 1. No acute cardiopulmonary disease. Abdomen/Pelvis CT 12/27/21 13:05 IMPRESSION: 1. Acute mild pancreatitis. 2: Cholelithiasis. 3: Fatty infiltration of the liver. Abdomen Ultrasound 12/27/21 14:24 IMPRESSION: Cholelithiasis, mild gallbladder wall thickening and right upper quadrant tenderness. Findings could be reactive from acute pancreatitis but acute cholecystitis not excludable. MRCP 12/28/21 11:31 IMPRESSION: 1. Acute interstitial pancreatitis. 2. Normal common duct. No choledocholithiasis. 3. Cholelithiasis. Labs Labs: Laboratory Results - last 24 hr 12/27/21 12/27/21 12/27/21 14:16 17:04 19:01 WBC RBC Hgb Hct MCV MCH MCHC RDW Plt Count MPV Immature Gran % (Auto) Neut % (Auto) Lymph % (Auto) [place] % (Auto) Eos % (Auto) Baso % (Auto) Lymph # (Auto) [place] # (Auto) Eos # (Auto) Baso # (Auto) Abs Immat Gran (auto) Absolute Neuts (auto) Absolute Nucleated RBC Nucleated RBC % Absolute Retic Percent Retic Immature Retic Fraction Retic Hgb Content Sodium Potassium Chloride Carbon Dioxide Anion Gap BUN Creatinine Estim Creat Clear Calc Estimated GFR Glucose Calcium Magnesium Iron TIBC Ferritin Total Bilirubin AST ALT Alkaline Phosphatase Troponin I < 0.012 < 0.012 Total Protein Albumin Vitamin B12 Folate TSH (Reflex) SARS-CoV-2 RNA (RT-PCR) Negative 12/27/21 12/28/21 12/28/21 22:16 07:21 07:21 WBC RBC Hgb 8.6 L Hct 28.5 L MCV MCH MCHC RDW Plt Count MPV Immature Gran % (Auto) Neut % (Auto) Lymph % (Auto) [place] % (Auto) Eos % (Auto) Baso % (Auto) Lymph # (Au
[2021-12-28 12:55] LABS: Hematocrit 29.7 % (37.0-47.0)
[2021-12-28 14:00] VITALS: BP 129/76; PULSE 81; RESP 16; TEMP 36.7; O2SAT 100
[2021-12-28 14:53] LABS: Add Urine Microscopic? YES; Appearance Urine Cloudy (Clear); Bilirubin Urine Negative (Negative); Blood Urine Negative (Negative); Color Urine Yellow (Yellow); Glucose Urine UA Negative (Negative); Ketones Urine 1+ mg/dL (Negative); Leukocyte Esterase Ur 3+ LEU/UL (Negative); Mucus Urine Rare /lpf; Nitrate Urine Negative (Negative); Protein Urine Negative (Negative); Squamous Epithelial Cell Urine Many /hpf (Few); Urobilinogen Urine Negative mg/dL (<2.0); WBC Urine 21-30 /hpf
[2021-12-28 14:54] LABS: Specific Grav Ur 1.036 (1.001-1.035)
[2021-12-28] MEDS: MICONAZOLE NITRATE 2% VAGINAL CREAM 45 GM TUBE 1 APPFUL VAGINAL (20:27)
[2021-12-28 22:00] VITALS: BP 142/84; PULSE 93; RESP 18; TEMP 36.2; O2SAT 99
[2021-12-28] MEDS: HYDROmorphone HCL INJ (*CRX) 1 MG/ML SYR 0.5 MG IV PUSH (23:49)
[2021-12-29] MEDS: SODIUM CHLORIDE 0.9% IV 1,000 ML 125 ML IV CONT (05:42)
[2021-12-29 06:00] VITALS: BP 148/95; PULSE 89; RESP 16; TEMP 36.1; O2SAT 100
[2021-12-29 08:30] LABS: Hematocrit 31.7 % (37.0-47.0); Hemoglobin 9.4 g/dL (12.0-15.0); Mean Corpuscular HGB Conc 29.7 g/dl (32-36); Mean Corpuscular Hemoglobin 23.9 pg (26-34); Mean Corpuscular Volume 80.7 fl (80-100); Mean Platelet Volume 11.2 fl (7.4-10.4); Platelet Count Result 323 k/mm3 (150-375); Red Blood Count 3.93 M/mm3 (4.2-5.4); Red Cell Distribution Width 15.7 % (11.5-14.5); White Blood Count 11.5 K/mm3 (4.5-10.0)
[2021-12-29 08:36] LABS: Alanine Aminotransferase 135 U/L (4-35); Albumin Level 4.3 g/dL (3.5-5.1); Alkaline Phosphatase 163 U/L (38-126); Anion Gap 9 mmol/L (8-16); Aspartate Amino Transferase 76 U/L (14-36); Bilirubin,Total 0.4 mg/dL (0.2-1.3); Blood Urea Nitrogen 10 mg/dL (7-17); Calcium 8.9 mg/dL (8.4-10.2); Carbon Dioxide 22 mmol/L (22-30); Chloride 107 mmol/L (98-107); Estimated CRCL calculation 100 ml/min; Estimated Glomerular Filt Rate > 60; Glucose 75 mg/dL (65-110); Lipase 138 U/L (23-300); Potassium 3.6 mmol/L (3.4-5.0); Sodium 138 mmol/L (137-145)
[2021-12-29] MEDS: ENOXAPARIN 40 MG/0.4 ML SYRINGE SUB-Q (09:12)
--- NOTE | 2021-12-29 10:02 | PM.CNGS ---
Assessment and Plan Assessment and plan (1) Gallstone pancreatitis: Code(s): K85.10 - Biliary acute pancreatitis without necrosis or infection Status: Acute Assessment and Plan: Pancreatitis has resolved. Discussed with Dr. Momin. Will go ahead and start patient on low-fat diet. If she tolerates this well, she could go home tomorrow. We will plan to go ahead with laparoscopic cholecystectomy as an outpatient within the next couple of weeks. Patient will need to go home on a low-fat diet. At surgery, she will have an intraoperative cholangiogram. I discussed the procedure of laparoscopic cholecystectomy including the general aspects of the surgery, the usual length of recovery and the time off work. The patient is happy to be able to be discharged before surgery as she just started a new job and wants to coordinate the surgery with her new employer. All questions were answered. She understands and agrees to go ahead. Patient does not need to go home on antibiotics from my perspective. Urine culture is pending. (2) Morbid obesity with BMI of 40.0-44.9, adult: Code(s): E66.01 - Morbid (severe) obesity due to excess calories; Z68.41 - Body mass index [BMI] 40.0-44.9, adult Status: Chronic (3) PCOS (polycystic ovarian syndrome): Code(s): E28.2 - Polycystic ovarian syndrome Status: Chronic Assessment and Plan: Takes metformin (4) Hypertension: Qualifiers: Hypertension type: unspecified Qualified Code(s): I10 - Essential (primary) hypertension Code(s): I10 - Essential (primary) hypertension Status: Chronic (5) Anemia: Code(s): D64.9 - Anemia, unspecified Status: Chronic Assessment and Plan: Etiology unclear. H&H has been stable during admission. History of Present Illness Consult details Consult date: 12/29/21 Reason for consult: abdominal pain (Lower chest and epigastric area) Requesting physician: Linn Childs PA-C Narrative: Patient is a 31-year-old woman who 2 or 3 weeks ago had epigastric abdominal pain that radiated through to her back. She was seen at [facility] and imaging showed gallstones. Her pain improved and she was to see a surgeon at [facility] on the day of admission 12/27/2021. However, she developed lower chest and epigastric abdominal pain that was very severe on the day of admission. This radiated through to her back. It was unbearable and she came to the emergency room at [facility]. Evaluation there showed tenderness in the epigastric area. Her white blood cell count was only slightly elevated but liver enzymes were elevated and her serum lipase was over 28,000. She had a CT scan of the abdomen and pelvis which showed gallstones as well as acute pancreatitis. She was admitted to [facility] and we were asked to see her in consultation. I came by twice yesterday but patient was getting her MRI so only saw her for the 1st time this morning. Her pain went away yesterday. It has not recurred. She is hungry. Her lipase came back yesterday afternoon and was normal. Liver enzymes are improving. Her MRCP yesterday showed no evidence of common bile duct stones but did show acute pancreatitis and gallstones. She is seen now in consultation for acute biliary pancreatitis. She has been started on ceftriaxone for possible urinary tract infection. She is also on Zosyn. Ultrasound done yesterday did show gallstones as well. Review of Systems Review of Systems: All systems reviewed & are unremarkable except as noted in HPI and below Constitutional: Constitutional: Denies chills and Denies fever(s) Cardiovascular: Cardiovascular: Denies chest pain, Denies diaphoresis, Denies dyspnea and Denies paroxysmal nocturnal dyspnea Respiratory: Respiratory: Denies chest congestion, Denies cough and Denies dyspnea Integumentary/Breasts: Skin/Breast: Denies lesions and Denies rash PMFSH Past Medical History Medical History
[2021-12-29] MEDS: ACETAMINOPHEN 325 MG TABLET 650 MG PO (11:49)
--- NOTE | 2021-12-29 12:00 | PM.IMPN ---
Progress Note: A&P Assessment and Plan (1) Gallstone pancreatitis: Code(s): K85.10 - Biliary acute pancreatitis without necrosis or infection Status: Acute Assessment and Plan: Pain improving MRCP negative for common duct stone Surgical evaluation pending (2) Hypertension: Qualifiers: Hypertension type: unspecified Qualified Code(s): I10 - Essential (primary) hypertension Code(s): I10 - Essential (primary) hypertension Status: Chronic Assessment and Plan: Blood pressures reviewed 12/28 and adequate Continue current management (3) UTI (urinary tract infection): Qualifiers: Urinary tract infection type: site unspecified Hematuria presence: without hematuria Qualified Code(s): N39.0 - Urinary tract infection, site not specified Code(s): N39.0 - Urinary tract infection, site not specified Status: Acute Assessment and Plan: Continue Zosyn (day 3) U/A ABNL, suggestive of UTI, symptoms resolved C/s will likely be negative due to Zosyn Note that she also described vaginal itching with has resolved with miconazole Subjective Date/time seen: 12/29/21 12:00 Interval history: 12/29 visit. No abdominal pain. No nausea. Only complaint today is a headache which she attributes to fasting. Denied chest pain or shortness of breath or swelling. Denied abnormal bleeding. Denied fevers or chills. Review of Systems Review of Systems: All systems reviewed & are unremarkable except as noted in HPI and below Exam Narrative: HEENT: PERRL, sclerae nonicteric, pharyngeal mucosa pink and intact NECK: No JVD CHEST: Clear to auscultation. Normal effort. HEART: NL S1/S2, regular, no murmur ABDOMEN: BS+, soft, MILD RUQ TO EPIGASTRIC TENDERNESS, no mass, no bruits EXTREMITIES: No cyanosis, edema, or clubbing NEUROLOGIC: CN intact and symmetric to inspection. MUSCULOSKELETAL: Tone and strength symmetric. PSYCH: Alert. Oriented to person, place, and time. Objective Data Vital Signs Vital Signs: Vital Signs - 24 hr 12/28/21 14:00 12/28/21 22:00 12/29/21 06:00 Temperature 98.0 F 97.1 F L 96.9 F L Pulse Rate 81 93 89 Respiratory Rate 16 18 16 Blood Pressure 129/76 142/84 H 148/95 H Pulse Oximetry 100 99 100 Intake/Output Intake/Output: Intake & Output 12/26/21 12/27/21 12/28/21 12/29/21 23:59 23:59 23:59 23:59 Intake Total 1050 2200 1050 Output Total 850 Balance 1050 1350 1050 Meds/Results Medications: Active Medications Generic Name Dose Route Start Last Admin Trade Name Freq PRN Reason Stop Dose Admin Acetaminophen 650 mg 12/29/21 09:55 12/29/21 11:49 Acetaminophen 325 Mg Tablet PO 650 mg Q4H PRN Administration Headache Albuterol 2 puff 12/28/21 00:42 Albuterol Sulfate (*Sp) Aerosol 1 Puff INHALATION Q6HRT PRN Shortness Of Breath Enoxaparin Sodium 40 mg 12/29/21 09:00 12/29/21 09:12 Enoxaparin 40 Mg/0.4 Ml Syringe SUB-Q 40 mg DAILY KEVIN Administration Hydromorphone HCl 0.5 mg 12/27/21 14:55 12/28/21 23:49 Hydromorphone Hcl Inj (*Crx) 1 Mg/Ml Syr IV PUSH 0.5 mg Q3H PRN Administration pain 7-10 Sodium Chloride 1,000 mls @ 60 mls/hr 12/27/21 15:05 12/29/21 05:42 Normal Saline Iv IV CONT 125 mls/hr .[id number] KEVIN Administration Piperacillin/Tazobactam/Dextrose 3.375 gm in 50 mls @ 100 mls/hr 12/27/21 20:00 12/29/21 09:12 Zosyn 3.375 Gm/D5w 50ml Pm IVPB 100 mls/hr Q6H KEVIN Administration Ceftriaxone Sodium/Dextrose 1 gm in 50 mls @ 100 mls/hr 12/28/21 17:15 Rocephin 1 Gm/D5w 50 Ml IVPB Q24H KEVIN Ketorolac Tromethamine 15 mg 12/27/21 14:56 Ketorolac 15 Mg/Ml Vial (*Bkc) IV PUSH Q6H PRN Pain Rated 4-6 Miconazole Nitrate 1 appful 12/28/21 21:00 12/28/21 20:27 Miconazole Nitrate 2% Vaginal Cream 45 Gm Tube VAGINAL 1 appful HS KEVIN Administration Miscellaneous Information 1 each 12/28/21 00:01 Pt On Zosyn,
[2021-12-29 14:00] VITALS: BP 124/84; PULSE 99; RESP 16; TEMP 36.6; O2SAT 97
[2021-12-29 20:00] VITALS: PULSE 99; RESP 16; O2SAT 97
[2021-12-29] MEDS: MICONAZOLE NITRATE 2% VAGINAL CREAM 45 GM TUBE 1 APPFUL VAGINAL (20:33)
[2021-12-29 22:00] VITALS: BP 133/63; PULSE 88; RESP 18; TEMP 36.6; O2SAT 97
[2021-12-30 05:05] VITALS: BP 120/64; PULSE 81; RESP 18; TEMP 36.4; O2SAT 97
[2021-12-30 08:00] VITALS: O2SAT 97
[2021-12-30 08:00] LABS: Hematocrit 29.4 % (37.0-47.0); Mean Corpuscular HGB Conc 30.6 g/dl (32-36); Mean Corpuscular Hemoglobin 24.5 pg (26-34); Mean Corpuscular Volume 80.1 fl (80-100); Mean Platelet Volume 11.3 fl (7.4-10.4); Platelet Count Result 297 k/mm3 (150-375); Red Blood Count 3.67 M/mm3 (4.2-5.4); Red Cell Distribution Width 15.7 % (11.5-14.5); White Blood Count 8.6 K/mm3 (4.5-10.0)
[2021-12-30 08:10] LABS: Alanine Aminotransferase 83 U/L (4-35); Albumin Level 3.9 g/dL (3.5-5.1); Alkaline Phosphatase 125 U/L (38-126); Anion Gap 7 mmol/L (8-16); Aspartate Amino Transferase 33 U/L (14-36); Bilirubin,Total 0.2 mg/dL (0.2-1.3); Blood Urea Nitrogen 6 mg/dL (7-17); Calcium 8.6 mg/dL (8.4-10.2); Carbon Dioxide 22 mmol/L (22-30); Chloride 108 mmol/L (98-107); Estimated CRCL calculation 112 ml/min; Estimated Glomerular Filt Rate > 60; Glucose 97 mg/dL (65-110); Lipase 83 U/L (23-300); Potassium 3.7 mmol/L (3.4-5.0); Sodium 137 mmol/L (137-145)
[2021-12-30] MEDS: ENOXAPARIN 40 MG/0.4 ML SYRINGE SUB-Q (08:20)
[2021-12-30] MEDS: ACETAMINOPHEN 325 MG TABLET 650 MG PO (08:25)
--- NOTE | 2021-12-30 09:03 | PM.DS ---
DS: Admitting Diagnosis Discharge Date 12/30/2021 Admitting Diagnosis Abdominal pain DS: Discharge Diagnosis Discharge Diagnosis (1) Gallstone pancreatitis: Code(s): K85.10 - Biliary acute pancreatitis without necrosis or infection Status: Acute Assessment and Plan: Abdominal pain improving MRCP negative for common duct stone Pt seen by surgery team. (2) Hypertension: Qualifiers: Hypertension type: unspecified Qualified Code(s): I10 - Essential (primary) hypertension Code(s): I10 - Essential (primary) hypertension Status: Chronic Assessment and Plan: Blood pressures is normal (3) UTI (urinary tract infection): Qualifiers: Hematuria presence: without hematuria Urinary tract infection type: site unspecified Qualified Code(s): N39.0 - Urinary tract infection, site not specified Code(s): N39.0 - Urinary tract infection, site not specified Status: Acute Assessment and Plan: Continue Zosyn (day 4) U/A ABNL, suggestive of UTI, symptoms resolved Transition to oral augmentin Continue miconazole for vaginal itching DS: Summary Hospital Course Hospital Course: 31-year-old female patient who recently was diagnosed with gallstones at an outside facility. The patient came to the emergency room here with complaints of chest discomfort since this morning. She said it was sharp it was in her chest is midsternal was in her back. Pt seen by surgery team pt should follow outpatient for lap cholecystectomy. Pt has been treated with iv zosyn for UTI. Time Spent with Patient Time attestation: Total time spent providing and/or coordinating discharge services:40 minutes on day of discharge Exam Narrative: Generally: Pt is comfortable CHEST: Clear to auscultation. HEART: NL S1/S2, regular, no murmur ABDOMEN: BS+, soft, MILD RUQ TO EPIGASTRIC TENDERNESS, no mass, no bruits EXTREMITIES: No cyanosis, edema, or clubbing NEUROLOGIC: CN intact and symmetric to inspection. MUSCULOSKELETAL: Tone and strength symmetric. PSYCH: Alert. Oriented to person, place, and time. DS: Data Data Completed and Pending Labs on day of discharge: Labs from last 24 hours 12/30/21 12/30/21 07:19 07:19 WBC 8.6 RBC 3.67 L Hgb 9.0 L Hct 29.4 L MCV 80.1 MCH 24.5 L MCHC 30.6 L RDW 15.7 H Plt Count 297 MPV 11.3 H Sodium 137 Potassium 3.7 Chloride 108 H Carbon Dioxide 22 Anion Gap 7 L BUN 6 L Creatinine 0.80 Estim Creat Clear Calc 112 Estimated GFR > 60 Glucose 97 Calcium 8.6 Total Bilirubin 0.2 AST 33 ALT 83 H Alkaline Phosphatase 125 Total Protein 7.0 Albumin 3.9 Lipase 83 Discharge Plan Discharge Attending physician on discharge: Korin Tai Consulting providers: Adama Gaona ; Linn Childs Discharging Clinician: Korin Tai Anticipated Discharge Date/Time: 12/30/21 08:56 Patient Disposition: Home, Self-Care Activity: as tolerated Diet: low fat Discharge Instructions: Dr. Gaona's office will call you to set up outpatient surgery. Pt will benefit from laparoscopic cholecystectomy as an outpatient Patient Instructions: Antibiotic Form, Low Fat Diet (DC) Stand Alone Forms: General Discharge Information Follow-up/Referrals: Adama Gaona MD [Physician] - (Pt will need laparoscopic cholecystectomy as an outpatient) Discharge Medications: New miconazole nitrate 2 % Cream 1 appful vaginal HS Qty: 1 RF: 0 amoxicillin-pot clavulanate [Augmentin] 500-125 mg tablet 1 tablet PO Q12H Qty: 14 RF: 0 Continued metformin 500 mg tablet 500 mg PO BID RF: 0 cetirizine 10 mg tablet 10 mg PO DAILY RF: 0 tizanidine 4 mg tablet 4 mg PO PRN PRN (Reason: Muscle Spasm) RF: 0 norethindrone (contraceptive) [Norlyda] 0.35 mg tablet 0.35 mg PO DAILY RF: 0 amlodipine-benazepril 10-40 mg capsule 1 cap PO DAILY RF: 0
== END 2021-12-30 10:35 | disposition home or self-care (01) | DRG 282 ==
LOC: ANHED 14:23 → ANH3MEDSUR 15:21
PROVIDERS: Nurse Practitioner; Physician Assistant; Admitting Provider Internal Medicine; Emergency Provider Emergency Medicine; Visit Provider Internal Medicine
DX: K85.10 Biliary acute pancreatitis without necrosis or infection (principal); E66.01 Morbid (severe) obesity due to excess calories; Z68.41 Body mass index [BMI] 40.0-44.9, adult; E28.2 Polycystic ovarian syndrome; D64.9 Anemia, unspecified; I10 Essential (primary) hypertension; N39.0 Urinary tract infection, site not specified; L29.8 Other pruritus; Z20.822 Contact with and (suspected) exposure to COVID-19; Z28.21 Immunization not carried out because of patient refusal; Z79.84 Long term (current) use of oral hypoglycemic drugs; Z79.899 Other long term (current) drug therapy
CPT/HCPCS: 36415; 71046; 74177; 74183; 76376; 76705; 80053; 81001; 81025; 82607; 82728; 82746; 83540; 83550; 83690; 83735; 84443; 84484; 85014; 85018; 85025; 85027; 85046; 85610; 85730; 87086; 93005; 96361; 96365; 96375; 96376; 99285; A9270; A9577; C9803; G0378; G0379; J1170; J1650; J2270; J2405; J2543; J7030; Q9967; U0003; U0005

== ENCOUNTER 2022-01-15 14:49 | Outpatient (CLI) | payer OTHER, SELFPAY ==
[2022-01-15 15:24] LABS: Alanine Aminotransferase 13 U/L (4-35); Albumin Level 4.3 g/dL (3.5-5.1); Alkaline Phosphatase 94 U/L (38-126); Amylase 52 U/L (30-110); Aspartate Amino Transferase 21 U/L (14-36); Bilirubin,Total 0.2 mg/dL (0.2-1.3); Lipase 65 U/L (23-300)
== END 2022-01-15 14:50 | disposition home or self-care (01) ==
LOC: ANHSURGERY 14:57
PROVIDERS: Visit Provider Surgery
DX: Z01.812 Encounter for preprocedural laboratory examination (principal); K85.10 Biliary acute pancreatitis without necrosis or infection
CPT/HCPCS: 36415; 80076; 82150; 83690; 86850; 86900; 86901

== ENCOUNTER 2022-01-22 00:48 | Day surgery (SDC) | payer OTHER, SELFPAY ==
[2022-01-14 14:18] VITALS: BMI 59.7
--- NOTE | 2022-01-14 14:29 | PC.NURSE ---
Report to the Outpatient Waiting Room, entrance under the green pavilion located off [facility], at time 9:00 on date 01/22/22. OR Time: 11:00. - You will be asked a series of questions to screen for COVID 19 for your protection. - A mask is required within the hospital. - One visitor is allowed at this time. Preoperative COVID Testing Requirements: No COVID Test needed if: (proof is required; if not received patient will have Rapid Test prior to entry) - Patient has received COVID Vaccine at least 14 days prior to procedure date or - Patient has positive COVID test result within last 90 days of surgery date. COVID Test needed if above criteria is not met Patients may have clear liquids (water, carbonated beverages, clear teas, apple juice) until 3 hours prior to surgery (8:00) with a maximum of 20 ounces. - No food from midnight until time of surgery Take the following medications with a SIP of water the morning of surgery: NONE Medications to discontinue per physician: N/A Date to take last dose: N/A Please no make-up, nail citizen of [place], hairspray, perfume, deodorant, or body powder the day of surgery. No jewelry (including any body piercings) or valuables the day of surgery, leave them at home. Please take a shower or bath the night before, or the morning of, surgery with an antibacterial soap. Wear comfortable, loose fitting clothing. HIBICLENS SHOWER - Jewelry must be removed prior to entering the operating room. Rings and piercings that are not removed may be cut off. - The hospital will not accept responsibility for valuables. - Please leave all valuables, including medications, at home the day of surgery. If you are going home after surgery, a licensed sprinkler driver must drive you home. - NO public transportation without another adult. - We recommend that an adult stay with you for 24 hours following discharge. - We also recommend that you do not drive, make important decision, drink alcoholic beverages, or take any drugs that were not prescribed by your health care provider for at least 24 hours after your discharge time. Follow any additional instructions given to you from your surgeon. Telephone instructions given to KATHRYN DE LOS SANTOS and asked if any additional questions and then verbalized understanding. Patient advised to call surgeon office or pre surgery nurse liaison [phone] if any additional questions.
[2022-01-22] VITALS (9 sets, daily range): BP systolic 125–143; BP diastolic 61–97; PULSE 64–101; RESP 14–27; TEMP 36.1–36.7; O2SAT 92–100
--- NOTE | ~2022-01-22 | XR_ITS ---
EXAMINATION: 01/22/2022 13:46 DATE: 01/22/2022 14:59 LIBRARY SERVICES ASSISTANT INDICATION: Cholecystectomy, intraoperative cholangiogram TECHNIQUE: Intraoperative cholangiogram with 2 contrast run(s) provided for review. 288 fluoroscopic images. FINDINGS: There is cannulation and contrast administration into the cystic duct remnant. There is a long cystic duct with a low insertion, a normal variant. There is no discrete filling defect in the common bile duct to suggest common bile duct stone. Contrast flows freely into the duodenum. There i s subtle extravasation of contrast during injection. IMPRESSION: 1. Patent cystic duct remnant and common bile duct, without common bile duct stone. Reviewed, dictated and finalized at location B. ARY SERVICES ASSISTANT IMPRESSION: 1. Patent cystic duct remnant and common bile duct, without common bile duct s tone.
--- NOTE | 2022-01-22 07:15 | PM.SD2 ---
Same Day Admit/Disch: HPI History of Present Illness Chief complaint: gallstone pancreatitis Narrative: Jeannine Kaminski is a 31 year old female Who presented at the end of November with severe epigastric pain that radiated through to her back. She came to the emergency room. She was found to have acute biliary pancreatitis with a serum lipase of over 28,000. This resolved rather promptly. She had an MRCP on 12/28/2021 which showed no common bile duct stones but did show acute pancreatitis and gallstones. She improved was able to be discharged. She is taken to surgery at this time for laparoscopic cholecystectomy with intraoperative cholangiogram for biliary pancreatitis. [facility] Past Medical History Medical History H/O: HTN (hypertension) History of PCOS Hypertension Obesity PCOS (polycystic ovarian syndrome) Surgical History Surgical History Previous section 3 c section Family History Family History Mother Hypertension Asthma Social History Social History Social History: 4 pregnancies with 2 living children. She is single. 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 The patient denies any alcohol marijuana illicit drugs. The patient does not have a durable power ip technology transactions attorney for healthcare. Code status full code Smoking status: Never smoker Alcohol intake: never Substance use: never Substance use type: does not use Living arrangements: with family Additional living arrangements comments: CHILDREN Gender identity (if verbalized by the patient): Female Spiritual care concerns: No Same Day Admit/Disch: Med Pre-admit Medications Home Medications Medication Instructions Recorded Confirmed Type amlodipine-benazepril 1 cap PO DAILY 12/27/21 01/22/22 History cetirizine 10 mg PO DAILY 12/27/21 01/22/22 History metformin 500 mg PO BID 12/27/21 01/22/22 History norethindrone (contraceptive) 0.35 mg PO DAILY 12/27/21 01/22/22 History [Norlyda] tizanidine 4 mg PO PRN PRN 12/27/21 01/22/22 History hydrocodone-acetaminophen 1 - 2 tablet PO Q6H PRN #25 tablet 01/22/22 Rx ketorolac 10 mg PO Q6H 4 Days #16 tablet 01/22/22 Rx Exam Const: General: comfortable, no acute distress, alert and awake HENMT: Head: normocephalic and atraumatic Mouth: Yes Normal oral and palatal mucosa present Eyes: Conjunctivae: conjunctivae normal Pupils: Equal, round and reactive pupils present EOM: EOMs intact bilaterally Neck: Neck: normal visual inspection, no lymphadenopathy and nontender Resp: Effort & Inspection: normal respiratory effort Auscultation: clear to auscultation bilaterally Cardio: Rate: regular rate Rhythm: regular rhythm Heart sounds: no gallops, no murmurs and no rubs GI: Inspection: non-distended and obesity GI Palp: Yes Soft to palpation, No Tenderness to palpation present (GI), No Hepatomegaly present and No Splenomegaly present Skin: Lesions: no lesions Rashes: no rashes Neuro: General: no focal motor deficits and CN's II-XI intact bilaterally Cranial nerves: Yes Equal, round and reactive pupils present, Yes Bilaterally intact EOM present, Yes facial symmetry and Yes Midline tongue present Speech: normal speech Motor exam (neuro): 5/5 motor strength present throughout and Motor abnormalities not present Extrem: General: no clubbing, cyanosis or edema and edema Psych: Affect: normal affect Thought process: Normal thought process present Insight: Good insight present (Psych) DS: Summary Time Spent with Patient Time attestation: Total time spent providing and/or coordinating discharge services: DS: Admitting Diagnosis Discharge Date January 22, 2022 Admitting Diagnosis biliary pancreatitis- pancreatitis has resolved. MRCP
--- NOTE | 2022-01-22 08:09 | WPDHPUPDATE1 ---
History and Physical Update Update Date/Time: 01/22/22 08:09 History and Physical has been reviewed, including an updated exam of the patient. There are NO changes in the patient's condition. Risks, benefits, and alternatives have been discussed and questions answered. Patient agrees to proceed with procedure.
[2022-01-22] MEDS: KETOROLAC 15 MG/ML VIAL (*BKC) IV PUSH (09:37)
[2022-01-22] MEDS: LACTATED RINGERS 1,000 ML 30 ML IV CONT ×2 (09:37→14:21)
[2022-01-22] MEDS: ACETAMINOPHEN 500 MG TABLET 1000 MG PO (09:37)
--- NOTE | 2022-01-22 11:50 | P.PNAN_ITS ---
Anes - Initial Pre Proc Eval Procedure: Operation Date: 01/22/22 12:30 Proposed Procedures p Laparoscopic Cholecystectomy - Adama Gaona MD Date/Time: 01/22/22 11:50 Surgeon: Adama Gaona MD Pre Op Diagnosis: gallstone pancreatitis Patient Data Age: 31 Gender: F Height: 1.63 m Weight: 153.9 kg Last Vital Signs Temp 36.7 C 01/22/22 09:30 Pulse 90 01/22/22 09:30 Resp 18 01/22/22 09:30 BP 125/61 01/22/22 09:30 Pulse Ox 100 01/22/22 09:30 Allergies Allergy/AdvReac Type Severity Reaction Status Date / Time aspirin Allergy Intermediate HIVES,SWELL Verified 01/22/22 10:32 ING Home Medications Medication Instructions Recorded Confirmed Type amlodipine-benazepril 1 cap PO DAILY 12/27/21 01/22/22 History cetirizine 10 mg PO DAILY 12/27/21 01/22/22 History metformin 500 mg PO BID 12/27/21 01/22/22 History norethindrone (contraceptive) 0.35 mg PO DAILY 12/27/21 01/22/22 History [Norlyda] tizanidine 4 mg PO PRN PRN 12/27/21 01/22/22 History Patient hx anesthesia problems: none Family hx anesthesia problems: none Results Review: All pre-operative results and documents have been reviewed as part of the pre-operative evaluation. [facility] Past Medical History Medical History H/O: HTN (hypertension) History of PCOS Hypertension Obesity PCOS (polycystic ovarian syndrome) Surgical History Surgical History Previous section 3 c section Family History Family History Mother Hypertension Asthma Social History Social History Social History: 4 pregnancies with 2 living children. She is single. 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 The patient denies any alcohol marijuana illicit drugs. The patient does not have a durable power employee benefits attorney for healthcare. Code status full code Smoking status: Never smoker Alcohol intake: never Substance use: never Substance use type: does not use Living arrangements: with family Additional living arrangements comments: CHILDREN Gender identity (if verbalized by the patient): Female Spiritual care concerns: No Anes - Eval Final PreProcedure Day of Procedure 01/22/22 11:50 Patient weight: morbidly obese Heart: regular rate and rhythm Lungs: clear to auscultation Airway: Mallampati scale class 1 Neurological: alert and oriented Last oral intake: >/= 8 hours ASA classification: III Emergent: no Anesthetic plan: proceed Anesthesia type and monitoring: general ETT and standard monitoring Results Review: All pre-operative results and documents have been reviewed as part of the pre-operative evaluation. Informed Consent: The patient's anesthetic plan and its attendant risks and benefits were discussed with the patient/family/POA. Questions were solicited and answers provided to the satisfaction of the patient/family/POA.
[2022-01-22] MEDS: ceFAZolin 3 GM/D5W 100 ML 100 ML IVPB (12:36)
[2022-01-22] MEDS: BUPIVACAINE/EPINEPHRINE 0.5% 30 ML VIAL INFILTRATE (13:40)
--- NOTE | 2022-01-22 14:38 | W.PM.PROC2 ---
Procedure Note - Detailed Date of Procedure 01/22/22 Pre-op Diagnosis gallstone pancreatitis Post-op Diagnosis same Procedure Performed Laparoscopic cholecystectomy with intraoperative cholangiogram Surgeon Adama Gaona MD Cad Drafter Aniceto MCELROY, Lucia MCELROY Anesthesia general and local (0.5% Marcaine with epinephrine) Indications Patient presented with acute pancreatitis around the end of November. She was also found to have gallstones. Her pancreatitis resolved. She was able to be discharged on a low-fat diet. MRCP at the time of admission showed no common bile duct stones. She has been relatively symptom-free on a low-fat diet and is taken to surgery now for laparoscopic cholecystectomy with cholangiogram. Findings There were multiple gallstones. The upper 3rd of the gallbladder was intrahepatic. Intraoperative cholangiogram was negative. There was mild chronic inflammation of the gallbladder. Description of Procedure Patient was taken to surgery and induced into general anesthesia. The abdomen is prepped and draped. Trocars were placed in the usual fashion using 0.5% Marcaine with epinephrine and applied Medical optical trocars. A 5 mm camera was used. The gallbladder was intrahepatic at its fundus. We tried to decompress the gallbladder with a laparoscopic aspirator. The bile did the drain well through the aspirator. I then tried to use the suction to decompress the gallbladder but this did work well either. We closed the cholecystotomy with a Vicryl endoloop. Two or 3 stones fell while we were trying to decompress the gallbladder. These were retrieved and removed. We then retracted the gallbladder anterosuperiorly. Traction was placed on the infundibulum. Dissection was carried out in the cholecystohepatic triangle. The cystic duct and cystic artery were dissected out very clearly. The gallbladder was dissected off the liver at its lower 3rd. Critical view was achieved. I then securely clipped and divided the cystic artery. I placed a clip on the very proximal part of the cystic duct. I used cystic duct scissors to create a small opening in the cystic duct. A cholangiogram catheter was placed. C-arm fluoroscopy was brought into the field. Cine fluoroscopic cholangiogram was then performed x2. There was no evidence of common bile duct stones and the cholangiogram appeared normal. We removed the cholangiogram catheter and securely clipped the cystic duct. The cystic duct was then divided as well. We continued dissection of the gallbladder off the liver. When he reached the upper half to 1/3 of the gallbladder, its intrahepatic location made the dissection 0 very difficult. Since there were many stones in the gallbladder, I tended to air on the side of taking some of the liver surface rather than entry into the gallbladder. This left some low raw liver surface. Eventually the gallbladder was completely freed from the liver. It was placed in an Endo-Catch bag and retrieved through the 10 11 epigastric trocar. I replaced the epigastric trocar and then reviewed the gallbladder fossa and right upper quadrant. We spent a considerable amount of time irrigating and suctioning the right upper quadrant. Cautery on the gallbladder fossa was carried out and hemostasis was achieved. Repeated irrigation and suctioning were carried out further. All looked good with no evidence of bleeding or bile leakage. No additional stones were noted in the peritoneal cavity. I then used a Hayder cone and Hayder-Otoniel suture pass device. The fascia for the epigastric trocar was closed with an 0 Vicryl suture. We evacuated CO2 and removed the trocar sleeves. Skin wounds were closed with subcuticular 4-0 Monocryl running suture. The wounds were dressed with Exofin surgical adhesive. The patient was awakened and taken to recovery in good condition. Sponge and needle counts were correct x2. Estimated Blood Loss -30 Drains No Packing
[2022-01-22] MEDS: ONDANSETRON INJ 4 MG/2 ML VIAL IV PUSH (14:40)
[2022-01-22] MEDS: fentaNYL CITRATE INJ (*CRX) 100 MCG/2 ML VIAL 25 MCG IV PUSH ×8 (14:40→15:14)
[2022-01-22] MEDS: oxyCODONE (*CRX) 5 MG/5 ML ORAL SOLN IR PO (16:06)
[2022-01-22] MEDS: diphenhydrAMINE HCl INJ 50 MG/ML VIAL 25 MG IV PUSH (16:40)
== END 2022-01-22 16:45 | disposition home or self-care (01) ==
PROVIDERS: Visit Provider Surgery
PROC: 0FT44ZZ Resection of Gallbladder, Percutaneous Endoscopic Approach (ICD-10-PCS; CPT 47562; principal; 2022-01-22 12:30)
DX: K85.10 Biliary acute pancreatitis without necrosis or infection (principal); K80.10 Calculus of gallbladder with chronic cholecystitis without obstruction; I10 Essential (primary) hypertension; E28.2 Polycystic ovarian syndrome; E66.01 Morbid (severe) obesity due to excess calories; Z68.43 Body mass index [BMI] 50.0-59.9, adult; Z79.84 Long term (current) use of oral hypoglycemic drugs
CPT/HCPCS: 47563; 74300; 88304; A9270; C1713; J0330; J0690; J1100; J1200; J1885; J2250; J2405; J2704; J2710; J3010; J7120; Q9966